=== PATIENT | male | born 1995 | race Caucasian/White ===

== ENCOUNTER 2017-09-14 19:19 | Emergency (ER) | payer BC, OTHER, SELFPAY ==
[2017-09-14] MEDS ORDERED: MORPHINE 4 MG/ML SYR ONE (19:49)
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
[2017-09-14] MEDS ORDERED: TETANUS & DIPHTHERIA TOX,ADULT 0.5 ML VIAL ONE (20:06)
[2017-09-14] MEDS ORDERED: SILVER SULFADIAZINE 1% 25 GM TOP ONE (20:08)
== END 2017-09-14 21:13 | disposition home or self-care (01) ==
LOC: ER 19:19
DX: T22.111A Burn of first degree of right forearm, initial encounter (principal); T20.10XA Burn of first degree of head, face, and neck, unspecified site, initial encounter; T31.0 Burns involving less than 10% of body surface; X12.XXXA Contact with other hot fluids, initial encounter; Y93.89 Activity, other specified; Y92.9 Unspecified place or not applicable; Z23 Encounter for immunization
CPT/HCPCS: 90714; 96361; 96374; 99283

== ENCOUNTER 2019-01-24 10:21 | Emergency (ER) | payer BC, OTHER, SELFPAY ==
[2019-01-24 11:34] LABS: Absolute Lymphocytes (CBC) 1.3 K/uL (0.7-4.9); Hematocrit 48.4 % (39.6-49.0); Lymphocytes % 27.1 % (15.3-44.8); MPV 8.3 fL (7.6-11.3); RBC Red Blood Cell Count 5.13 M/uL (4.33-5.43)
--- NOTE | 2019-01-24 11:38 | RAD REPORT ---
EXAM DESCRIPTION: RAD - Chest Single View - 01/24/2019 11:27 am CLINICAL HISTORY: CHEST PAIN Chest pain. COMPARISON: No comparisons FINDINGS: Portable technique limits examination quality. The lungs are grossly clear. The heart is normal in size. No displaced fractures. IMPRESSION: No acute intrathoracic process suspected.
[2019-01-24 11:57] LABS: ALT/SGPT 28 U/L (12-78); AST/SGOT 22 U/L (15-37); Albumin 4.5 g/dL (3.4-5.0); Alkaline Phosphatase 60 U/L (45-117); BUN Blood Urea Nitrogen 16 mg/dL (7-18); Bicarbonate 29 mmol/L (21-32); Bilirubin Direct 0.2 mg/dL (0-0.2); Bilirubin Total 0.7 mg/dL (0.2-1.0); Glucose Level 77 mg/dL (74-106); Potassium 4.3 mmol/L (3.5-5.1); Protein, Total 7.6 g/dL (6.4-8.2); Sodium Level 139 mmol/L (136-145); Troponin (Emerg Dept Use Only) < 0.02 ng/mL (0.0-0.045)
[2019-01-24] MEDS ORDERED: CYCLOBENZAPRINE 10 MG TAB ONE (12:03)
[2019-01-24] MEDS ORDERED: KETOROLAC 30 MG/ML INJ ONE (12:04)
--- NOTE | 2019-01-24 12:27 | EKG ---
Test Date: 2019-01-24 Test Time: 10:33:36 Manager [place]: IZA MEASUREMENT RESULTS: Intervals: Rate: 64 NJ: 130 QRSD: 94 QT: 374 QTc: 385 [place]: P: 57 NJ: 130 QRS: 64 T: 20 INTERPRETIVE STATEMENTS: Normal sinus rhythm Normal ECG No previous ECG available for comparison Electronically Signed On 01-24-19 12:26:13 CDT by Jerel Stack
--- NOTE | 2019-01-24 12:43 | EDPHYS ---
Physician Documentation [facility] Name: Niko Silva Age: 23 yrs Sex: Male : 1995 Arrival Date: 01/24/2019 Time: 10:25 Bed 13 Private MD: ED Physician Cholo Vasquez HPI: 01/24 10:51 This 23 yrs old Male presents to ER via Ambulatory with complaints of Chest pm1 Pain. 10:51 The patient or guardian reports chest pain that is located primarily in the anterior pm1 aspect of left upper chest. The pain radiates to the left shoulder. Associated signs and symptoms: Pertinent negatives: abdominal pain, headache, nausea, shortness of breath, vomiting. The chest pain is described as sharp. Duration: The patient or guardian reports a single episode, that is still ongoing. Modifying factors: the symptoms are aggravated by deep breath, moving left arm. Severity of pain: in the emergency department the pain is actually worse. The patient has not experienced similar symptoms in the past. The patient has not recently seen a physician. Historical: - Allergies: 10:32 No Known Allergies; la1 - Home Meds: 10:32 None [Active]; la1 - PMHx: 10:32 None; la1 - PSHx: 10:32 None; la1 - Immunization history:: Adult Immunizations up to date. - Social history:: Smoking status: Patient uses tobacco products, smokes two packs cigarettes per day. - Ebola Screening: : No symptoms or risks identified at this time. ROS: 10:51 Constitutional: Negative for fever, chills, and weight loss, Eyes: Negative for injury, pm1 pain, redness, and discharge, ENT: Negative for injury, pain, and discharge, Neck: Negative for injury, pain, and swelling. 10:51 Respiratory: Negative for shortness of breath, cough, wheezing, and pleuritic chest pain, Abdomen/GI: Negative for abdominal pain, nausea, vomiting, diarrhea, and constipation, Back: Negative for injury and pain, MS/Extremity: Negative for injury and deformity, Skin: Negative for injury, rash, and discoloration, Neuro: Negative for headache, weakness, numbness, tingling, and seizure. 10:51 Cardiovascular: Positive for chest pain, Negative for edema, palpitations. Exam: 11:03 Constitutional: This is a well developed, well nourished patient who is awake, alert, pm1 and in no acute distress. Head/Face: Normocephalic, atraumatic. Eyes: Pupils equal round and reactive to light, extra-ocular motions intact. Lids and lashes normal. Conjunctiva and sclera are non-icteric and not injected. Cornea within normal limits. Periorbital areas with no swelling, redness, or edema. ENT: Nares patent. No nasal discharge, no septal abnormalities noted. Tympanic membranes are normal and external auditory canals are clear. Oropharynx with no redness, swelling, or masses, exudates, or evidence of obstruction, uvula midline. Mucous membranes moist. Neck: Trachea midline, no thyromegaly or masses palpated, and no cervical lymphadenopathy. Supple, full range of motion without nuchal rigidity, or vertebral point tenderness. No Meningismus. Chest/axilla: Normal chest wall appearance and motion. Nontender with no deformity. No lesions are appreciated. Left sided chest pain and shoulder pain reproduced with patient taking deep breaths and with moving left shoulder and arm Cardiovascular: Regular rate and rhythm with a normal S1 and S2. No gallops, murmurs, or rubs. Normal PMI, no JVD. No pulse deficits. Respiratory: Lungs have equal breath sounds bilaterally, clear to auscultation and percussion. No rales, rhonchi or wheezes noted. No increased work of breathing, no retractions or nasal flaring. Abdomen/GI: Soft, non-tender, with normal bowel sounds. No distension or tympany. No guarding or rebound. No evidence of tenderness throughout. Back: No spinal tenderness. No costovertebral tenderness. Full range of motion. Skin: Warm, dry with normal turgor. Normal color with no rashes, no lesions, and no evidence of cellulitis. MS/ Extremity: Pulses equal, no cyanosis. Neurovascular intact. Full, normal range of motion. 11:03 Neuro: Orientation: is normal, Motor: is normal, moves all fours, Sensation: is normal, no obvious gross deficits. Vital Signs: 10:32 BP 143 / 90; Pulse 64; Resp 16; Temp 97.7; Pulse Ox 100% on R/A; Weight 83.91 kg; la1 Height 5 ft. 10 in. (177.80 cm); 11:26 BP 128 / 83; Pulse 68; Resp 16; Pulse Ox 98% ; bp 12:34 BP 115 / 85; Pulse 60; Resp 14; Pulse Ox 100% ; bp 10:32 Body Mass Index 26.54 (83.91 kg, 177.80 cm) la1 MDM: 10:36 Patient medically screened. [facility] 10:51 Data reviewed: vital signs. Data interpreted: Pulse oximetry: on room air is 100 %. pm1 Interpretation: normal. 12:41 Counseling: I had a detailed discussion with the patient and/or guardian regarding: the pm1 historical points, exam findings, and any diagnostic results supporting the discharge/admit diagnosis, lab results, radiology results, the need for outpatient follow up, to return to the emergency department if symptoms worsen or persist or if there are any questions or concerns that arise at home. 01/24 10:51 Order name: Basic Metabolic Panel; Complete Time: 11:59 pm1 01/24 10:51 Order name: CBC with Diff; Complete Time: 11:44 pm1 01/24 10:51 Order name: LFT's; Complete Time: 11:59 pm1 01/24 10:51 Order name: Troponin (emerg Dept Use Only); Complete Time: 11:59 pm1 01/24 10:51 Order name: XRAY Chest (1 view); Complete Time: 11:44 pm1 01/24 10:51 Order name: EKG; Complete Time: 10:52 pm1 01/24 10:51 Order name: EKG - Nurse/Tech; Complete Time: 10:55 pm1 01/24 10:51 Order name: IV Saline Lock; Complete Time: 11:12 pm1 01/24 10:51 Order name: Labs collected and sent; Complete Time: 10:55 pm1 EC:03 Rate is 64 beats/min. Rhythm is regular, Normal Sinus Rhythm with No ectopy. QRS [place] pm1 is Normal. No Q waves. T waves are Normal. No ST changes noted. Clinical impression: Normal ECG. Administered Medications: 12:05 Drug: TORadol - Ketorolac 15 mg Route: IVP; Site: right antecubital; bp 12:49 Follow up: Response: Pain is decreased bp 12:05 Drug: Flexeril 10 mg Route: PO; bp 12:49 Follow up: Response: Pain is decreased bp Disposition: 01/25 05:44 Co-signature as Attending Physician, Cholo Vasquez MD I agree with the assessment and katelyn plan of care. Disposition: 01/24/19 12:42 Discharged to Home. Impression: Chest pain, unspecified. - Condition is Stable. - Discharge Instructions: Nonspecific Chest Pain. - Prescriptions for Naprosyn 500 mg Oral Tablet - take 1 tablet by ORAL route 2 times per day As needed take with food; 30 tablet. Cyclobenzaprine 10 mg Oral Tablet - take 1 tablet by ORAL route every 8 hours As needed; 30 tablet. - Work release form, Medication Reconciliation Form, Thank You Letter, Antibiotic Education, Prescription Opioid Use form. - Follow up: Emergency Department; When: As needed; Reason: Worsening of condition. Follow up: Private Physician; When: 2 - 3 days; Reason: Recheck today's complaints, Continuance of care, Re-evaluation by your physician. - Problem is new. - Symptoms have improved. Signatures: Dispatcher [employer] EDID Cholo Vasquez MD MD cha Attema, Lee, RN RN la1 Russ Jimenez, SALVAGE MECHANIC SALVAGE MECHANIC pm1 Christofer Stephens RN RN bp Corrections: (The following items were deleted from the chart) 01/24 12:49 12:42 01/24/2019 12:42 Discharged to Home. Impression: Chest pain, unspecified. bp Condition is Stable. Forms are Medication Reconciliation Form, Thank You Letter, Antibiotic Education, Prescription Opioid Use. Follow up: Emergency Department; When: As needed; Reason: Worsening of condition. Follow up: Private Physician; When: 2 - 3 days; Reason: Recheck today's complaints, Continuance of care, Re-evaluation by your physician. Problem is new. Symptoms have improved. pm1
--- NOTE | 2019-01-24 12:43 | ER ---
Nurse's Notes [facility] Name: Niko Silva Age: 23 yrs Sex: Male : 1995 Arrival Date: 01/24/2019 Time: 10:25 Bed 13 Private MD: Diagnosis: Chest pain, unspecified Presentation: 01/24 10:33 Presenting complaint: Patient states: I woke up with a sharp pain in the left side of la1 my chest, worse when I take a deep breath. Transition of care: patient was not received from another setting of care. Onset of symptoms was January 24, 2019. Risk Assessment: Do you want to hurt yourself or someone else? Patient reports no desire to harm self or others. Initial Sepsis Screen: Does the patient meet any 2 criteria? No. Patient's initial sepsis screen is negative. Does the patient have a suspected source of infection? No. Patient's initial sepsis screen is negative. Care prior to arrival: None. 10:33 Method Of Arrival: Ambulatory la1 10:33 Acuity: ASAF 3 la1 Triage Assessment: 10:35 General: Appears in no apparent distress. comfortable, Behavior is calm, cooperative, bp appropriate for age. Pain: Complains of pain in anterior aspect of left upper chest. EENT: No deficits noted. Neuro: No deficits noted. Cardiovascular: Rhythm is sinus rhythm. Respiratory: No deficits noted. GI: No signs and/or symptoms were reported involving the gastrointestinal system. : No signs and/or symptoms were reported regarding the genitourinary system. Derm: No deficits noted. Musculoskeletal: No deficits noted. Historical: - Allergies: 10:32 No Known Allergies; la1 - Home Meds: 10:32 None [Active]; la1 - PMHx: 10:32 None; la1 - PSHx: 10:32 None; la1 - Immunization history:: Adult Immunizations up to date. - Social history:: Smoking status: Patient uses tobacco products, smokes two packs cigarettes per day. - Ebola Screening: : No symptoms or risks identified at this time. Screenin:13 Abuse screen: Denies threats or abuse. Denies injuries from another. Nutritional bp screening: No deficits noted. Tuberculosis screening: No symptoms or risk factors identified. Fall Risk None identified. Assessment: 10:35 General: SEE TRIAGE NOTE. bp 11:26 Reassessment: Patient and/or family updated on plan of care and expected duration. Pain bp level reassessed. Patient is alert, oriented x 3, equal unlabored respirations, skin warm/dry/pink. 12:48 Reassessment: PT D/C HOME AMBULATORY WITH FAMILY, DX WITH NON-CARDIAC CHEST PAIN. bp Vital Signs: 10:32 BP 143 / 90; Pulse 64; Resp 16; Temp 97.7; Pulse Ox 100% on R/A; Weight 83.91 kg; la1 Height 5 ft. 10 in. (177.80 cm); 11:26 BP 128 / 83; Pulse 68; Resp 16; Pulse Ox 98% ; bp 12:34 BP 115 / 85; Pulse 60; Resp 14; Pulse Ox 100% ; bp 10:32 Body Mass Index 26.54 (83.91 kg, 177.80 cm) la1 ED Course: 10:25 Patient arrived in ED. mr 10:32 Arm band placed on left wrist. la1 10:33 Triage completed. la1 10:36 Russ Jimenez NP is PHCP. pm1 10:36 Cholo Vasquez MD is Attending Physician. pm1 10:46 Christofer Stephens, ESTRELLA is Primary Nurse. bp 10:51 EKG done, by transportation engineering technician. reviewed by Russ Jimenez NP. sm3 11:05 Inserted saline lock: 20 gauge in right antecubital area, using aseptic technique. bp Blood collected. 11:13 Patient has correct armband on for positive identification. Bed in low position. Call bp light in reach. Side rails up X2. Adult w/ patient. Pulse ox on. NIBP on. 11:24 X-ray completed. Portable x-ray completed in exam room. Patient tolerated procedure mh1 well. 11:27 XRAY Chest (1 view) In Process Unspecified. EDMS 12:48 No provider procedures requiring assistance completed. IV discontinued, intact, bp bleeding controlled, No redness/swelling at site. Pressure dressing applied. Patient maintains SpO2 saturation greater than 95% on room air. Administered Medications: 12:05 Drug: TORadol - Ketorolac 15 mg Route: IVP; Site: right antecubital; bp 12:49 Follow up: Response: Pain is decreased bp 12:05 Drug: Flexeril 10 mg Route: PO; bp 12:49 Follow up: Response: Pain is decreased bp Outcome: 12:42 Discharge ordered by MD. pm1 12:48 Discharged to home ambulatory, with family. bp 12:48 Condition: stable 12:48 Discharge instructions given to patient, Instructed on discharge instructions, follow up and referral plans. medication usage, Demonstrated understanding of instructions, follow-up care, medications, Prescriptions given X 2. 12:49 Patient left the ED. bp Signatures: Dispatcher [employer] EDMS Eugenia Whelan mr Jacques Perezha 1 Cecil Stephens, RN RN la1 Russ Jimenez, ROTARY ENGINE ASSEMBLER ROTARY ENGINE ASSEMBLER pm1 Christofer Stephens, ESTRELLA RN bp Eufemia Agudelo 3
[2019-01-24 12:59] VITALS: TEMP 97.7
[2019-01-24 13:02] VITALS: BP 115/85; O2SAT 100
== END 2019-01-24 12:49 | disposition home or self-care (01) ==
LOC: ER 10:21
DX: R07.9 Chest pain, unspecified (principal); F17.210 Nicotine dependence, cigarettes, uncomplicated
CPT/HCPCS: 36415; 71045; 80048; 80076; 84484; 85025; 93005; 96374; 99285